=== PATIENT | male | born 1975 | race Caucasian/White ===

== ENCOUNTER 2019-10-05 13:39 | Emergency (ER) | payer SELFPAY ==
[~2019-10-05] VITALS: Ht 175.3 cm; Wt 72.0 kg
[2019-10-05 14:00] VITALS: BP 141/82
--- NOTE | 2019-10-05 14:19 | PHYS DOC ---
Past History Past Medical History: No Pertinent History Past Surgical History: No Surgical History Alcohol Use: None Adult General Chief Complaint Chief Complaint: NOSEBLEED [facility] Patient is a 44-year-old male who presents to the emergency department for evaluation. He states yesterday, he picked his nose, and it caused it to bleed, bleeding lasted about 10 minutes before stopping. He states that this afternoon, he did the same, which caused another nosebleed, which stopped about 10 minutes prior to arrival. Denies any other complaints of pain at this time. He does not take any anticoagulants. He has not had any fevers or chills, nausea, or vomiting. He denies any nasal pain. He has not had significant or ongoing problems with nosebleeds. There are no alleviating or exacerbating factors to his symptoms. Review of Systems Review of Systems Constitutional: Denies fever or chills [] Eyes: Denies change in visual acuity, redness, or eye pain [] HENT: Denies nasal congestion or sore throat [] Respiratory: Denies cough or shortness of breath [] Cardiovascular: No additional information not addressed in HPI [] Neurologic: Denies headache, focal weakness or sensory changes [] Physical Exam Physical Exam PHYSICAL EXAM: CONSTITUTIONAL: Well developed, well nourished HEAD: normocephalic, atraumatic EENT: PERRL, EOMI. Conjunctivae normal color, sclerae non-icteric; moist mucous membranes. The right nostril, there is excoriation of the medial nasal mucosa, with some fresh blood without active bleeding at this time. The left-sided nasal mucosa appears normal. NECK: Supple, non-tender; no meningismus. LUNGS: Lungs CTA, breathing even and unlabored. Normal air movement. HEART: Regular rate and rhythm, no murmur CHEST: No deformity; non-tender ABDOMEN: The abdomen is soft, and non-tender, no masses or bruits. EXTREM: Normal ROM; no deformity, no calf tenderness. Normal pulses palpable in all extremities. There is no pedal edema. SKIN: No rash; no diaphoresis NEURO: Alert; normal speech and cognition; CN's grossly intact; strength grossly intact without focal deficit. BACK: No CVA TTP. PSYCHIATRIC: The patient exhibits a mildly flat affect. Current Patient Data Vital Signs Vital Signs Date Time Temp Pulse Resp B/P (MAP) Pulse Ox O2 Delivery O2 Flow Rate FiO2 10/05/19 14:00 98.1 66 16 141/82 (101) 99 EKG EKG [] Radiology/Procedures Radiology/Procedures [] Course & Med Decision Making Course & Med Decision Making Discussed home care plan, avoiding digital trauma, the need for close PCP follow-up, and return precautions. Dragon Disclaimer Dragon Disclaimer This electronic medical record was generated, in whole or in part, using a voice recognition dictation system. Departure Departure: Impression: Primary Impression: Epistaxis Disposition: HOME, SELF-CARE Condition: STABLE Referrals: PCP,NO (PCP) Patient Instructions: EVA Sanz MD Oct 05, 2019 14:19
== END 2019-10-05 14:20 | disposition home or self-care (01) ==
LOC: ER 13:39
DX: R04.0 Epistaxis (principal)
CPT/HCPCS: 99281